=== PATIENT | male | born 1995 | race American Indian/Alaskan Native ===

== ENCOUNTER 2019-12-05 07:06 | Emergency (ER) | payer SELFPAY ==
[2019-12-05 07:24] VITALS: BP 131/74
--- NOTE | 2019-12-05 09:55 | Emergency Department Report ---
Chief Complaint: Urogenital-Male Stated Complaint: UTI Time Seen by Provider: 12/05/19 09:39 - HPI History of Present Illness: 24-year-old -[place] male patient presents with complaints of penile discharge for the past 2 weeks. He also admits to mild dysuria. He denies any hematuria, testicular pain or swelling, fever/chills/sweats, or penile lesions. He admits to unprotected intercourse. He denies any known history of diabetes or HIV - Exam Vital Signs: Vital Signs 12/05/19 07:23 Temperature 99.0 F Pulse Rate 95 H Respiratory 13 Rate Blood Pressure 131/74 [Right] O2 Sat by Pulse 100 Oximetry MSE screening note: Focused history and physical exam performed. Due to findings the following was ordered: ED Medical Decision Making - Medical Decision Making 24-year-old male patient here for penile discharge for the past 2 weeks. He denies any red flag symptoms. His vitals are normal and he is well-appearing. Patient does not meet criteria for emergency treatment. Recommend patient follow-up with the health department or Dr. Armendariz for further treatment and evaluation-this information was provided to the patient. Discussed very strict return precautions in great detail with patient who verbalizes understanding. Also discussed importance of refraining from sexual activity and inform his p artner to also get tested and treated. ED Disposition for MSE Clinical Impression: Penile discharge Disposition: - MED SCREENING EXAM-LEFT Is pt being admited?: No Condition: Stable Instructions: Sexually Transmitted Diseases (ED), Safe Sex (ED) Referrals: GILBERTO ARMENDARIZ MD [Staff Physician] - 2-3 Days ED General adult EXAM - General General appearance: alert, in no apparent distress Limitations: No Limitations - Head Head exam: Positive: atraumatic, normocephalic - Neck Neck exam: Positive: full ROM - Respiratory Respiratory exam: Negative: respiratory distress - Cardiovascular Cardiovascular Exam: Positive: regular rate - GI/Abdominal GI/Abdominal exam: Positive: soft. Negative: distended, tenderness - Neurological Neurological exam: Positive: alert, oriented X3 - Psychiatric Psychiatric exam: Positive: normal affect, normal mood
== END 2019-12-05 10:04 | disposition left against medical advice (07) ==
LOC: ED 07:06
DX: R36.9 Urethral discharge, unspecified (principal); R30.0 Dysuria
CPT/HCPCS: 99281